=== PATIENT | male | born 1955 | race Caucasian/White ===

== ENCOUNTER → 2018-01-24 | Outpatient (CLI) | payer BC ==
--- NOTE | 2018-01-24 14:13 | CT ---
EXAM DESCRIPTION: Abdomen/Pelvis w/wo Contrast CLINICAL HISTORY: 62 years Male, UNSPECIFIED ABDOMINAL PAIN COMPARISON: None available. TECHNIQUE: Contiguous 3 mm axial images were obtained from the lung bases to the level of the proximal femora after the administration of intravenous and oral contrast. Delayed images were also obtained. Sagittal and coronal reconstructions were reviewed. FINDINGS: THORAX: The visualized lung bases appear grossly unremarkable. LIVER: The liver demonstrates normal size and density with no intrahepatic biliary ductal dilatation or focal masses. GALLBLADDER: Grossly unremarkable. No evidence of cholelithiasis or abnormal wall thickening. PANCREAS: Appears normal with no cystic or solid lesions. SPLEEN: Normal ADRENAL GLANDS: Normal with no nodules or masses. KIDNEYS: Both kidneys enhance symmetrically with no hydronephrosis or nephrolithiasis or perinephric fluid collections. No focal masses are identified. The visualized ureters appear grossly unremarkable. STOMACH: Mild thickening of the distal esophagus, likely related to reflux. The stomach is moderately distended with no gross abnormality. SMALL BOWEL: The small bowel loops demonstrate variable degrees of distention with no abnormal dilatation or other signs to suggest bowel obstruction. LARGE BOWEL: A short segment descending colon in the left lower quadrant demonstrates surrounding pericolonic fat stranding with multiple diverticuli and wall thickening of the colonic loop, consistent with acute diverticulitis. No evidence of abscess or drainable fluid collections noted. The rest of the large bowel loops appear grossly unremarkable with no abnormal dilatation or wall thickening. The appendix is well-visualized and appears normal No evidence of free intraperitoneal air or fluid. RETROPERITONEUM: The abdominal aorta is nonaneurysmal with mild atherosclerosis. The inferior vena cava is normal in size and caliber. No abnormally enlarged retroperitoneal lymph nodes are identified. URINARY BLADDER:The urinary bladder is well-distended with no gross abnormality. The prostate is mildly enlarged. ADDITIONAL FINDINGS: None. BONES: Mild degenerative change are noted in the visualized lumbar spine more predominant at L5-S1 level with intervertebral disc space narrowing and vacuum disc phenomenon. Bilateral L5 pars defects are also noted with no evidence of spondylolisthesis..No evidence of osteophytic or osteoblastic lesions. IMPRESSION: 1. Diverticulosis with acute diverticulitis involving short segment of the descending colon in the left lower quadrant with surrounding pericolonic fat stranding. No definite abscess or drainable fluid collections. 2. No other acute intra-abdominal process. 3. Bilateral L5 pars defect with no evidence of spondylolisthesis. The findings of acute diverticulitis were communicated with Dr. Higgins at 2.00pm on 01/24/2018. Electronically signed by: Garett Recinos MD 01/24/2018 2:11 PM CDT
== END ==
LOC: LAB.O 10:42
PROVIDERS: ATTEND General Practice
DX: K57.32 Diverticulitis of large intestine without perforation or abscess without bleeding (principal); R10.9 Unspecified abdominal pain